=== PATIENT | male | born 1930 | race Caucasian/White ===

== ENCOUNTER 2017-01-12 17:46 | Inpatient (IN) | payer MEDICARE, BC ==
[~2017-01-12] VITALS: Ht 170.2 cm; Wt 74.0 kg
--- NOTE | ~2017-01-12 | OR ---
ADMIT: 01/12/2017 RM/LOC: 312 [facility] MR#: [id number] [address] [address] FREDO HERNANDEZ [address] [place] [address] Operative/Delivery Room Report SEX: M AGE: 86 : 1930 SURGERY DATE: 01/14/2017 SURGEON: Jesus Schultz MD PREOPERATIVE DIAGNOSES: Anemia with lower gastrointestinal bleed. POSTOPERATIVE DIAGNOSES: 1. Extensive sigmoid diverticula. 2. 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 PROCEDURE PERFORMED: Colonoscopy with hot cauterization of bleeding telangiectasia at the cecum and ileocecal valve. ANESTHESIA: Sedation. ESTIMATED BLOOD LOSS: None. DESCRIPTION OF PROCEDURE: After appropriate informed consent was obtained, the patient was brought to the endoscopy suite. IV sedation was provided. Rectal exam revealed some mild hemorrhoids. No rectal masses. The scope was introduced, passed the entire length of colon. He had a pretty poor prep, quite a bit of retained stool throughout. It took a while to irrigate and suction some of this out but I was unable to irrigate and suction all of it out. He had extensive sigmoid diverticula but there did not appear to be any active bleeding from any of those. I was able to advance through this area, all the way to the cecum. Interestingly in the cecum, around the ileocecal valve, was just a small trickle of blood coming from what appeared to be just a small telangiectasia, again just right on the ileocecal valve. I irrigated this away and then it continued to do ooze or bleed, so I made preparations to cauterize that area, so I used the hot biopsy forceps and cauterized and destroyed that small telangiectasia and controlled the bleeding that way. Ileocecal valve and appendiceal orifice otherwise appeared normal. The scope was then slowly and carefully withdrawn. No polyps or masses were identified on the way out. Again, he had extensive sigmoid diverticula. Scope was brought back down the rectum which revealed moderate-sized internal hemorrhoids. No rectal masses. The patient tolerated the procedure well and was taken to the recovery room in stable condition. Jesus Schultz MD/ william JOB #: [id number] CC: Ren Winslow, Attending Physician Ren Winslow, Family Physician Ren Winslow MD
--- NOTE | ~2017-01-12 | CO ---
ADMIT: 01/12/2017 RM/LOC: 312 [facility] MR#: [id number] [address] [address] FREDO HERNANDEZ[address] [place] [address] Consultation SEX: M AGE: 86 : 1930 DATE OF CONSULTATION: 01/13/2017 ATTENDING PHYSICIAN: Ren Winslow CONSULTING PHYSICIAN: Jesus Schultz MD ADDENDUM: HISTORY OF PRESENT ILLNESS: This is a pleasant 86-year-old male patient of Dr. Winslow, who had bright red blood per rectum and anemia as well as hypotension. I was asked to see him for possible endoscopy. It sounds like he had a colonoscopy done by Dr. Bravo a couple of years ago, which showed diverticula with no polyps or masses. He did have a small polyp also but no tumors or masses. At this time, the patient is nontender. On exam, his abdomen is soft, nontender, and nondistended. ASSESSMENT: Lower gastrointestinal bleed with anemia. PLAN: I have recommended proceeding with colonoscopy, which we will plan on doing tomorrow. We will have him drink the prep today. I have gone through the risks and benefits of this procedure with the patient. He understands and agrees to proceed. Jesus Schultz MD/ william JOB #: [id number] CC: Ren Winslow, Attending Physician Ren Winslow, Family Physician
[~2017-01-12 17:46] MED LIST: ASA CHILDREN'S81 MG PO; CALCIUM PO; CALCIUM600 MG PO; CALTRATE-600 D600 MG PO; CARAFATE1 GM PO; COREG12.5 MG PO; DUONEB DPS3 ML IH; HCTZ PO; HYDROCHLOROTHIA25 MG PO; LAXATIVE PO; LEVAQUIN500 MG PO; LEVAQUIN750 MG PO; LISINOPRIL5 MG PO; MICRO-K DPS10 MEQ PO; MUCINEX1200 MG PO; MUCOMYST 10% DPS4 ML IH; NITROSTAT0.4 MG PO; NORCO 10-325 T1 EACH PO; PREDNISONE PO; PROTONIX40 MG PO; PROVENTIL IH; PROVENTIL2.5 MG/0.5 IH; SIMVASTATIN10 MG PO; SPIRIVA18 MCG IH; SYMBICORT 160/4.5 IH; SYNTHROID DPS0.05 MG PO; SYNTHROID50 MCG PO; TYLENOL325 MG PO; VITAMIN C PO; WARFARIN PO; ZESTRIL5 MG PO; ZITHROMAX250 MG PO
--- NOTE | 2017-01-16 10:08 | HP ---
ADMIT: 01/12/2017 RM/LOC: 312 [facility] MR#: [id number] [address] [address] FREDO HERNANDEZ [address] [place] [address] History and Physical SEX: M AGE: 86 : 1930 DATE OF SERVICE: 01/12/2017 HISTORY OF PRESENT ILLNESS: This is an 86-year-old male with a history of COPD, CAD, chronic systolic heart failure, pacemaker dependent, hypothyroidism, admitted today after 2 episodes of hematochezia. The patient reports he was in his normal state of health until this afternoon when he had 2 bowel movements with large amounts of blood. Notes blood in the toiled bowl and mixed in stool, unable to quantify the amount of blood, but reports it was a lot. He felt weak after these 2 bowel movements and came to the emergency room. Last bowel movement was around 4 p.m. today, but the patient feels like he is going to have another bowel movement soon. The patient denies any lightheadedness, dizziness, palpitations, shortness of breath. Reports he wears about 6 L nasal cannula chronically due to his COPD. Denies any abdominal pain, nausea, vomiting. No melena and reports that the blood was bright red. Denies any history of GI bleeding in the past. He is unsure if he has been taking his aspirin because he takes so many meds. Reports appetite has been good. Denies any dysuria or changes in urinary symptoms. Reports his COPD is stable, and he denies any recent illnesses, sore throat. Denies chest pain or cough. He currently still feels weak, but denies other complaints. He was given 750 mL of normal saline in the ER and was started on NS of 150 mL an hour thereafter. He was started on Protonix IV and IV hydrocortisone while still in the ER. PAST MEDICAL HISTORY: 1. Advanced COPD. 2. Chronic systolic heart failure. 3. Hypertension. 4. CAD. 5. Pacemaker dependent. 6. Hypothyroidism. 7. Gastroesophageal reflux disease. 8. History of lung cancer. HOME MEDICATIONS: 1. Levothyroxine 75 mcg. 2. Lisinopril 5 mg. 3. Simvastatin 10 mg. 4. Carvedilol 25 mg b.i.d. 5. Multivitamin. 6. Calcium. 7. Fish oil. 8. Omeprazole 20 mg daily. 9. Bisacodyl. 10.Mucinex 1200 mg b.i.d. 11.Ferrous sulfate. 12.Vitamin C. 13.Aspirin 81 mg. 14.Lasix 80 mg daily. 15.Spiriva. ADMIT: 01/12/2017 RM/LOC: 312 [facility] MR#: [id number] [address] [address] [place] [address] History and Physical SEX: M AGE: 86 : 1930 16.Symbicort. 17.Albuterol nebulizers. 18.Albuterol inhaler. ALLERGIES: NO KNOWN DRUG ALLERGIES. FAMILY HISTORY: Noncontributory. SOCIAL HISTORY: Former smoker. Denies alcohol use. REVIEW OF SYSTEMS: A complete review of systems was obtained and is negative except for what is listed in the HPI above. PHYSICAL EXAMINATION: VITAL SIGNS: Upon admission to the emergency room include blood pressure 89/49 with a MAP of 59, pulse 70, respiratory rate of 19, oxygen saturation of 98% on 4 L. GENERAL: Alert and oriented. No acute distress. Slightly pale. HEENT: Mucous membranes dry. No scleral icterus. Extraocular movements intact. CARDIOVASCULAR: Regular rate and rhythm, no murmurs noted. RESPIRATORY: Slight expiratory wheezing noted bilaterally, otherwise clear to auscultation bilaterally. Nasal cannula in place. Normal respiratory effort. ABDOMEN: Soft, nontender, nondistended. Normoactive bowel sounds. RECTAL: Daniel blood noted around anal area. Normal rectal tone, no masses noted. Daniel blood noted on digital rectal exam. EXTREMITIES: Trace edema to lower extremities bilaterally. SKIN: Appears slightly pale, otherwise no rashes or lesions noted. NEUROLOGICAL: Moving all 4 extremities equally, no focal deficits. Cranial nerves grossly intact. PSYCH: Answers questions appropriately. Does not appear depressed or anxious. LABORATORY DATA: CBC shows hemoglobin of 10.2 (was 11.1 three weeks ago), platelets 198, WBC 6.8, creatinine 1.2 (baseline 0.9 to 1.0), otherwise BMP unremarkable. INR 1.09. IMAGING: Chest x-ray, stable fibrosis noted. No pulmonary edema. EKG shows paced ventricular rhythm, normal rate of 71. Last echocardiogram in November of 2015 revealed EF of 50% to 55%, moderate mitral regurgitation, severe tricuspid regurgitation, dilated left atrium, pulmonary artery systolic pressure of 56. ASSESSMENT AND PLAN: An 86-year-old male with history of chronic obstructive pulmonary disease, coronary artery disease, chronic systolic heart failure, hypothyroidism, history of iron deficiency anemia, history of lung cancer, admitted for a lower gastrointestinal bleed. ADMIT: 01/12/2017 RM/LOC: 312 [facility] MR#: [id number] [address] [place], [place] [id number] [address] [place] [address] History and Physical SEX: M AGE: 86 : 1930 1. Lower gastrointestinal bleed and hematochezia. a. Hemoglobin similar to prior, though onset of bleeding was recent, so we will recheck. b. We will continue IV fluids, IV PPI, and consult General Surgery for possible scope as Hemoccult is positive. 2. Hypotension. a. Unclear if due to blood loss as has only had 2 episodes of hematochezia and has had none since admission so far. Possibly due to relative adrenal insufficiency, so we will check renin and cortisol and currently giving stress dose steroids. We will continue to give IV fluids. 3. Chronic systolic heart failure. 4. Coronary artery disease. a. Paced rhythm. b. Mild ejection fraction 50% to 55% one year ago. c. We will continue to watch fluid status closely, and is currently IV fluids. 5. Advanced chronic obstructive pulmonary disease. a. We will continue inhalers and chronic oxygen. 6. History of iron deficiency anemia. a. We will hold iron for now, pending possible scope. 7. Hypothyroidism, continue Synthroid and monitor. 8. Hypertension, as is hypotensive we will hold anti-hypertensives and monitor. 9. History of gastroesophageal reflux disease, currently on IV PPI. 10.Generalized weakness, likely due to lower gastrointestinal bleed and hypotension, but we will consult PT/OT when the patient is stable to work with them. 11.Holding chemical deep vein thrombosis prophylaxis due to current gastrointestinal bleed. 12.DNR/DNI. 13.N.p.o. for now. Lydia Lenz MD / Ren Winslow MD / william JOB #: [id number] CC: Ren Winslow, Attending Physician Ren Winslow, Family Physician
[2017-01-20] MEDS ORDERED: CARVEDILOL3.125 MG PO (18:44)
[2017-01-20] MEDS ORDERED: THERA1 EACH PO (18:44)
[2017-01-20] MEDS ORDERED: SYNTHROID75 MCG PO (18:44)
[2017-01-20] MEDS ORDERED: SIMVASTATIN10 MG PO (18:44)
[2017-01-20] MEDS ORDERED: CALCIUM500 MG PO (18:45)
[2017-01-20] MEDS ORDERED: LAXATIVE5 M1 PO (18:46)
[2017-01-20] MEDS ORDERED: OMEGA-3 DPS1000 MG PO (18:46)
[2017-01-20] MEDS ORDERED: PRILOSEC DPS20 MG PO (18:46)
[2017-01-20] MEDS ORDERED: IRON325 M1 PO (18:47)
[2017-01-20] MEDS ORDERED: MUCINEX1200 MG PO (18:47)
[2017-01-20] MEDS ORDERED: LASIX DPS40 MG PO (18:48)
[2017-01-20] MEDS ORDERED: ASA CHILDREN'S81 MG PO (18:48)
[2017-01-20] MEDS ORDERED: ASCORBIC ACID500 MG PO (18:48)
[2017-01-20] MEDS ORDERED: SPIRIVA18 MCG IH (18:48)
[2017-01-20] MEDS ORDERED: SYMBICORT 16010.2 GM IH (18:49)
[2017-01-20] MEDS ORDERED: PROAIR RESPICL90 MCG IH (18:49)
[2017-01-20] MEDS ORDERED: PROVENTIL2.5 MG/3 M IH (18:49)
[2017-01-20] MEDS ORDERED: PREDNISONE1 MG PO (18:50)
[2017-01-20] MEDS ORDERED: COLACE-DPS100 MG PO (18:51)
[2017-01-20] MEDS ORDERED: LEVAQUIN DPS500 MG PO (18:51)
--- NOTE | 2017-01-22 23:29 | ER ---
ADMIT: 01/12/2017 RM/LOC: 312 [facility] MR#: [id number] [address] [address] FREDO HERNANDEZ [address] [place] [address] Emergency Room Report SEX: M AGE: 86 : 1930 DATE: 01/12/2017 ADDENDUM: The patient was checked out to me by Dr. Greer with results of labs pending. Apparently, the patient had originally presented because he had 2 episodes of blood in his stools this afternoon. Other than the blood in the stools and a feeling of being slightly weak, there was no other specific complaint. During his stay, the patient had no complaints of any pain whatsoever, did not have any difficulty breathing. No change in bladder function. Denied any recent illness, fevers or chills. He had gotten 500 L normal saline bolus prior to my taking over on the patient and was getting fluid at 150 mL/h. His blood pressure by the time I took over the patient was 90s over 50s while he was lying flat, in the 70s over 40s if he was sitting up. His labs showed that his hemoglobin was 10.2, which is actually stable for him. His INR is 1.09. His chemistries were unremarkable other than a BUN of 32. Chest x-ray showed nothing acute. Plan at this time is to have the patient come in for continued gentle fluid hydration and to further look into this possible lower GI bleed. I did order hydrocortisone 100 mg IV in the Emergency Department and Protonix 80 mg IV. I spoke to Dr. Winslow, his primary care physician, who will be admitting the patient. DIAGNOSES: 1. Lower gastrointestinal bleed. 2. Hypotension. Ayad Styles MD/ william JOB #: [id number] CC: Ren Winslow MD, Attending Physician Ren Winslow MD, Family Physician
--- NOTE | 2017-02-06 08:00 | DS ---
ADMIT: 01/12/2017 RM/LOC: 431 [facility] MR#: [id number] [address] [address] FREDO HERNANDEZ [address] [place] [address] Discharge Summary SEX: M AGE: 86 : 1930 CORRECTED: 02/01 1153 / 02/01 1228 / 02/01/2017 1251 ADMISSION DATE: 01/12/2017 DISCHARGE DATE: 01/19/2017 CONSULTATIONS: Jesus Schultz MD FINAL DIAGNOSES: 1. Acute blood loss anemia secondary to an in the cecum. 2. Chronic systolic heart failure. 3. COPD (chronic obstructive pulmonary disease) exacerbation. 4. Relative adrenal insufficiency. REASON FOR ADMISSION: Please see H and P. However, admitted with anemia and hypoxia. HOSPITAL COURSE: Admitted to the service of [facility] under the care of myself, Ren Winslow MD. 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 Laboratories remained stable throughout his hospitalization. His oxygenation improves nicely to his baseline, and he discharges to home on a steroid taper as well as instructions for followup. DISPOSITION: Home. DISCHARGE CONDITION: Stable. DISCHARGE MEDICATIONS: See the discharge medication reconciliation, it is reviewed and accurate. DISCHARGE INSTRUCTIONS: Discharged to home on a prednisone taper. Follow up with me in my office on January 27 at 9:15. Discussed the plan with the patient, expressed understanding, was in agreement, and had no further questions. Thirty minutes spent on discharge activities of this patient. Ren Winslow MD/ wendyf JOB #: [id number] CC: Ren Winslow MD, Attending Physician Ren Winslow MD, Family Physician CORRECTED: 02/01 1153 / 02/01 1228 / 02/01/2017 1257
--- NOTE | 2017-02-15 10:44 | CO ---
ADMIT: 01/12/2017 RM/LOC: 312 [facility] MR#: [id number] [address] [address] FREDO HERNANDEZ [address] [place] [address] Consultation SEX: M AGE: 86 : 1930 DATE OF CONSULTATION: 01/13/2017 ATTENDING PHYSICIAN: Ren Winslow CONSULTING PHYSICIAN: Jesus Schultz MD REASON FOR CONSULTATION: Hematochezia. HISTORY OF PRESENT ILLNESS: Fredo is a very pleasant 86-year-old male, who had 2 bloody bowel movements yesterday at home. He denies ever having any episodes like this before, dark stools, diarrhea, constipation, or nausea, vomiting, or abdominal pain. He takes 81 mg aspirin but denies taking any other blood thinning medications. His last colonoscopy was performed by Dr. Bravo in 2014 that did show some diverticulosis, ileocecal valve polyp, and an internal hemorrhoid. The patient further denies any lightheadedness or shortness of breath. PAST MEDICAL HISTORY: Significant for COPD, heart failure, hypertension, coronary artery disease, hypothyroidism, GERD, and history of lung cancer. PAST SURGICAL HISTORY: 1. Last EGD and colonoscopy was performed in 2014, please see HPI. 2. Pacemaker placement. ALLERGIES: NO KNOWN DRUG ALLERGIES. MEDICATIONS: Well documented in chart. FAMILY HISTORY: Noncontributory. SOCIAL HISTORY: The patient is a former smoker, but denies alcohol and illicit drug use. REVIEW OF SYSTEMS: CONSTITUTIONAL: The patient denies any fever, chills, or night sweats. The rest of comprehensive 10-point review of systems was performed and all other systems are negative. PHYSICAL EXAMINATION: GENERAL: The patient is in no acute distress. He is alert and oriented. HEENT: Head is normocephalic and atraumatic. EOMS are intact. Pallor conjunctiva but negative for icterus or erythema. Pinnae, free of deformities. Nose is midline. No tracheal deviation. NECK: Supple. SKIN: Positive for pallor. Negative for jaundice, clubbing, edema, pallor, or cyanosis. LUNGS: Normal respiratory effort. HEART: Distal pulses intact. Regular rate and rhythm. ABDOMEN: Soft, nondistended, and nontender. NEURO: Grossly intact. ADMIT: 01/12/2017 RM/LOC: 312 [facility] MR#: [id number] [address] [address] FREDO HERNANDEZ [address] [place] [address] Consultation SEX: M AGE: 86 : 1930 LABORATORY DATA: Hemoglobin 7.4, this is a trend down words. ASSESSMENT: Hematochezia. PLAN: The plan is to have the patient undergo colonoscopy tomorrow performed by Dr. Schultz. I will have him prep today. He is already on the schedule, and get him consented for the procedure. I discussed the risks, alternatives, benefits, and complications of colonoscopy with the patient to which he has agreement of this plan. I had all of his questions answered, and would like to proceed. Thank you for the consultation of this patient. LINDY Waldron / Jesus Schultz MD / william JOB #: [id number] CC: Ren Winslow, Attending Physician Ren Winslow, Family Physician
--- NOTE | 2017-02-15 10:44 | OR ---
ADMIT: 01/12/2017 RM/LOC: 312 [facility] MR#: [id number] [address] [address] FREDO HERNANDEZ [address] [place] [address] Operative/Delivery Room Report SEX: M AGE: 86 : 1930 SURGERY DATE: 01/13/2017 SURGEON: Jesus Schultz MD PREOPERATIVE DIAGNOSIS: Need for central venous access for IV fluids as well as pressors. POSTOPERATIVE DIAGNOSIS: Need for central venous access for IV fluids as well as pressors. PROCEDURE PERFORMED: Right internal jugular central venous line placement with ultrasound. ANESTHESIA: Local. ESTIMATED BLOOD LOSS: None. DESCRIPTION OF PROCEDURE: After consent was obtained, the patient was left in his ICU bed. His right neck was prepped and draped in a sterile fashion. A 1% lidocaine was injected in skin deep tissues directly over a large right internal jugular vein. A small incision was made over this vein. An 18-gauge Cook needle on a syringe was used to access his right internal jugular vein under real-time ultrasound guidance. The guidewire passed easily through the needle. Then via Seldinger technique, a 7-Belarusian, three-lumen catheter was placed to 17 cm to the skin edge. All three ports were aspirated and flushed easily. The line was sewn in place and sterile dressing applied. The patient tolerated the procedure well. Jesus Schultz MD/ william JOB #: [id number] CC: Ren Winslow, Attending Physician Ren Winslow, Family Physician
== END 2017-01-19 12:29 | disposition home health service (06) | DRG 377 ==
LOC: ER 17:46 → 3ICU 20:13 → 4PCU 01-17 06:57
PROVIDERS: ADMIT Internal Medicine
PROC: 03HY32Z Insertion of Monitoring Device into Upper Artery, Percutaneous Approach (ICD-10-PCS; 2017-01-12)
PROC: 30233N1 Transfusion of Nonautologous Red Blood Cells into Peripheral Vein, Percutaneous Approach (ICD-10-PCS; 2017-01-12)
PROC: 02HV33Z Insertion of Infusion Device into Superior Vena Cava, Percutaneous Approach (ICD-10-PCS; 2017-01-13)
PROC: 0W3P8ZZ Control Bleeding in Gastrointestinal Tract, Via Natural or Artificial Opening Endoscopic (ICD-10-PCS; principal; 2017-01-14)
DX: K55.21 Angiodysplasia of colon with hemorrhage (principal); J96.21 Acute and chronic respiratory failure with hypoxia; J18.9 Pneumonia, unspecified organism; I95.9 Hypotension, unspecified; E87.0 Hyperosmolality and hypernatremia; I11.0 Hypertensive heart disease with heart failure; I50.22 Chronic systolic (congestive) heart failure; D62 Acute posthemorrhagic anemia; Z99.81 Dependence on supplemental oxygen; E87.6 Hypokalemia; J44.9 Chronic obstructive pulmonary disease, unspecified; K57.30 Diverticulosis of large intestine without perforation or abscess without bleeding; E03.9 Hypothyroidism, unspecified; K21.9 Gastro-esophageal reflux disease without esophagitis; I25.10 Atherosclerotic heart disease of native coronary artery without angina pectoris; Z95.0 Presence of cardiac pacemaker; Z85.118 Personal history of other malignant neoplasm of bronchus and lung; Z79.82 Long term (current) use of aspirin; Z87.891 Personal history of nicotine dependence; Z66 Do not resuscitate; Q27.33 Arteriovenous malformation of digestive system vessel

== ENCOUNTER 2017-04-19 18:32 | Inpatient (IN) | payer MEDICARE, BC ==
[~2017-04-19] VITALS: Ht 170.2 cm; Wt 65.2 kg
--- NOTE | ~2017-04-19 | CO ---
ADMIT: 04/19/2017 RM/LOC: 530 [facility] MR#: [id number] [address] [address] FREDO HERNANDEZ[address] [place] [address] Consultation SEX: M AGE: 86 : 1930 DATE OF CONSULTATION: 04/20/2017 ATTENDING PHYSICIAN: Ren Winslow CONSULTING PHYSICIAN: Jesus Schultz MD ADDENDUM: This patient has recurrent lower GI bleed with bright red blood per rectum. I scoped him a few months ago and found telangiectasia in the cecum, I believe. Nothing else concerning. With this recurrent bleeding, he now presents to discuss repeat colonoscopy. PHYSICAL EXAMINATION: ABDOMEN: Soft. It is nontender. ASSESSMENT: Recurrent lower gastrointestinal bleed, question telangiectasia versus a diverticular bleed. PLAN: I have recommended proceeding with colonoscopy. I have gone through risks and benefits of this procedure in depth with the patient. He understands all this and agrees to proceed. Jesus Schultz MD/ modl JOB #: [id number] CC: Ren Winslow, Attending Physician Ren Winslow, Family Physician
[~2017-04-19 18:32] MED LIST changes: +ASCORBIC ACID500 MG PO; +CALCIUM500 MG PO; +CARVEDILOL3.125 MG PO; +COLACE-DPS100 MG PO; +IRON325 M1 PO; +LASIX DPS40 MG PO; +LAXATIVE5 M1 PO; +LEVAQUIN DPS500 MG PO; +OMEGA-3 DPS1000 MG PO; +PREDNISONE1 MG PO; +PRILOSEC DPS20 MG PO; +PROAIR RESPICL90 MCG IH; +PROVENTIL2.5 MG/3 M IH; +SYMBICORT 16010.2 GM IH; +SYNTHROID75 MCG PO; +THERA1 EACH PO
--- NOTE | 2017-04-21 08:36 | HP ---
ADMIT: 04/19/2017 RM/LOC: 530 [facility] MR#: [id number] [address] [address] FREDO HERNANDEZ [address] [place] [address] History and Physical SEX: M AGE: 86 : 1930 DATE OF SERVICE: CHIEF COMPLAINT: Bright red blood per rectum. HISTORY OF PRESENT ILLNESS: The patient is a very pleasant 86-year-old gentleman, who reports he had a small little bit of blood in his stool yesterday and a large amount today. It has had happened recently, this spring, necessitating a week long stay in the hospital with multiple endoscopic evaluations as well as ICU stay and transfusions, etc. The patient is very nervous about this and presented to the emergency room. Prior to this, he has really been in his usual state of health. No recent fevers, chills, nausea, or vomiting. No shortness of breath. No dyspepsia. No melena reported. He has been eating and drinking well. He does not know much about his medications and his sons are very involved in his care and they do this for him. He just recently had hemoglobin of 10.8 back in the office records and not too long ago, on the 10 of March. PAST MEDICAL HISTORY: 1. History of chronic systolic heart failure. 2. Advanced COPD. 3. Hypertension. 4. Coronary artery disease. 5. Pacer-dependent atrial fibrillation. 6. Hypothyroidism. 7. GERD. 8. History of lung cancer. 9. 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 MEDICATIONS: He is on: 1. Aspirin 81 mg a day. 2. Albuterol. 3. DuoNeb. 4. Vitamin C. 5. Bisacodyl. 6. Symbicort. 7. Carvedilol. 8. Docusate. 9. Ferrous sulfate. 10.Lasix. 11.Synthroid. 12.Multivitamin. 13.Omeprazole. 14.Simvastatin. 15.Spiriva. Please see list for full details. FAMILY HISTORY: Significant for cancer in his mother. Father and sister had heart disease. Brother had cancer as well. ADMIT: 04/19/2017 RM/LOC: 530 [facility] MR#: [id number] [address] [address] FREDO HERNANDEZ [facility] [place] [address] History and Physical SEX: M AGE: 86 : 1930 SOCIAL HISTORY: Former smoker. Lives at home with his . Sons are involved in his care. REVIEW OF SYSTEMS: As per HPI. Otherwise, completely reviewed and negative. PHYSICAL EXAMINATION: VITAL SIGNS: Temperature 97.3, pulse 71, respiratory rate 16, blood pressure 99/57, O2 saturation 92% on room air. GENERAL: He is alert and oriented x3. No acute distress. A little hard of hearing. Pleasant. HEENT: Normocephalic, atraumatic. Pupils are equal, round, and reactive to light and accommodation. Extraocular muscles intact. Moist mucous membranes. NECK: No lymphadenopathy. Soft, supple. Trachea midline. LUNGS: He has very prolonged expiratory phase, but really not many wheezes. Very faint, occasional one at end-expiratory. Symmetric thoracic excursion and a little barrel chested. HEART: Regular rate and rhythm. No murmurs, rubs, or gallops. ABDOMEN: Soft, nontender, nondistended. Bowel sounds present. No guarding. No rigidity. No masses palpable. EXTREMITIES: No cyanosis, clubbing, or edema. MUSCULOSKELETAL: Has 5/5 strength in all four extremities. NEUROLOGICAL: No focal deficits noted. Cranial nerves II through XII grossly intact. SKIN: No rashes noted. LABORATORY AND X-RAY DATA: Hemoglobin is 10.3, platelets 169, white count 5.6. ASSESSMENT: 1. Gastrointestinal bleed. 2. History of colonic arteriovenous malformation/telangiectasia. ADMIT: 04/19/2017 RM/LOC: 530 [facility] MR#: [id number] [address] [address] FREDO HERNANDEZ [address] [place] [address] History and Physical SEX: M AGE: 86 : 1930 3. Advanced chronic obstructive pulmonary disease. 4. Atrial fibrillation, status post pacemaker. 5. Hypertension. 6. Coronary artery disease. PLAN: At this point in time, I will stop his aspirin. We will just watch his hemoglobin and trend it overnight until it stabilizes. Given his severe history of requiring transfusions, ICU stay in the past, I think we should watch him in the hospital until he improves and he is very stable. Likely needs to be off aspirin indefinitely. We will hold off on surgical evaluation unless he gets more hypotensive or unstable or needs transfusion. The patient is agreeable to plan. Duane Barnhart MD/ william JOB #: [id number] CC: Ren Winslow, Attending Physician Ren Winslow, Family Physician
--- NOTE | 2017-04-29 17:59 | ER ---
ADMIT: 04/19/2017 RM/LOC: 530 [facility] MR#: [id number] [address] [address] FREDO HERNANDEZ [address] [place] [address] Emergency Room Report SEX: M AGE: 86 : 1930 DATE: 04/19/2017 ADDENDUM: CHIEF COMPLAINT: Bloody stools. HISTORY OF PRESENT ILLNESS: This is an 86-year-old male who had a history of a recent GI bleed in January of 2017. Today, he said he came as soon as he saw blood in his stool again, he has only had one episode. His hemoglobin is 10.3. At this time, his vitals are stable but I did speak with Dr. Barnhart regarding this patient. Due to his recent bleed within a few months, we are keeping him on observation. CLINICAL IMPRESSION: Gastrointestinal bleed with hematochezia. LINDY Santana / Ayad Styles MD / william JOB #: [id number] CC: Ren Winslow MD, Attending Physician Ren Winslow MD, Family Physician
--- NOTE | 2017-04-30 21:18 | DS ---
ADMIT: 04/19/2017 RM/LOC: 530 [facility] MR#: [id number] [address] [address] FREDO HERNANDEZ [address] [place] [address] Discharge Summary SEX: M AGE: 86 : 1930 ADMISSION DATE: 04/19/2017 DISCHARGE DATE: 04/23/2017 DISCHARGE DIAGNOSES: 1. Lower GI (gastrointestinal) bleed, likely diverticular in nature. 2. Severe colonic diverticulosis. 3. Acute blood loss anemia. 4. COPD (chronic obstructive pulmonary disease). 5. Chronic respiratory failure. 6. Hypokalemia, resolved. 7. Atrial fibrillation, status post pacemaker. 8. Hypertension. 9. Gastroesophageal reflux disease. 10.History of chronic systolic heart failure. 11.Hypothyroidism. CONSULTATIONS: Jesus Schultz MD with general surgery. PROCEDURES: Colonoscopy. REASON FOR ADMISSION: The patient is a very pleasant 86-year-old gentleman who presented to [facility] on the day of admission with complaints of bright red blood in his stool. It happened over about a 48 hours period of time. This also happened in the spring and required multiple endoscopic evaluations at this time. At the time of admission, his hemoglobin was 10.3, and he was admitted for further evaluation and treatment. For complete details, please see H and P dictated on the day of admission. HOSPITAL COURSE: At the time of admission, his hemoglobin was 10.3, he was admitted and hemoglobin was monitored. Surgery was consulted and he underwent a colonoscopy that showed extensive diverticulosis. No evidence of telangiectasia or AVMs were noted. There was no active bleed noted. During his hospital stay his hemoglobins were monitored. He did require 3 units of packed red cells total. Any bleeding or melanotic stools stopped and his hemoglobin stabilized at about 8.2. He was on oral iron therapy. He ADMIT: 04/19/2017 RM/LOC: 530 [facility] MR#: [id number] [id number] [facility] [address] [place] [id number] FREDO HERNANDEZ [address] [place] [address] Discharge Summary SEX: M AGE: 86 : 1930 ambulated and ate without difficulty. He did have a little dizziness and we held his Lasix and Coreg for a short period of time. He was a little hypokalemic and we replaced that as well. As mentioned, did well with therapy. As mentioned, was not orthostatic and with his hemoglobin being stable he had a normal bowel movement on the day of discharge without any symptoms. He had been eating well and was thought to be ready for discharge on 04/23. His discharge medications are found on his discharge medication list. He will never be on any aspirin, fish oil or other any antiplatelet agents again. We will be restarting his Lasix and Coreg as an outpatient. We will make sure we have close followup with Dr. Winslow. His diet will be cardiac as tolerated. As mentioned, he will see Dr. Winslow in the next week or thereabouts for followup. Mario Haynes MD/ adyg JOB #: [id number] CC: Ren Winslow MD, Attending Physician Ren Winslow MD, Family Physician
--- NOTE | 2017-05-02 07:06 | OR ---
ADMIT: 04/19/2017 RM/LOC: 530 [facility] MR#: [id number] [address] [address] FREDO HERNANDEZ [address] [place] [address] Operative/Delivery Room Report SEX: M AGE: 86 : 1930 SURGERY DATE: 04/21/2017 SURGEON: Jesus Schultz MD PREOPERATIVE DIAGNOSIS: Lower gastrointestinal bleed. POSTOPERATIVE DIAGNOSIS: Evidence of extensive diverticula and probable diverticular bleed. No evidence of telangiectasia. No active bleeding. PROCEDURE PERFORMED: Colonoscopy. ANESTHESIA: Sedation. ESTIMATED BLOOD LOSS: None. DESCRIPTION OF PROCEDURE: After appropriate informed consent was obtained, the patient was brought to the operating room. IV sedation was provided. A rectal exam was performed. This revealed a fair bit of old red blood in the rectum. The scope was introduced, passed the entire length of colon. He had quite a bit of blood and some stool mixed in within the rectum and sigmoid colon region. That seems to be where most of the blood was concentrated. He had extensive wide-mouth sigmoid diverticula. It took quite a bit of time irrigating and suctioning all this blood out or as much as I possibly could. I did not identify anything actively bleeding. There was no fresh bright red blood. It was all dark or maroon colored blood. The scope was advanced past this area all the way to the cecum. The remainder of the colon looked normal. The ileocecal valve and appendiceal orifice appeared normal. I did not identify any telangiectasia this time around. The scope was slowly and carefully withdrawn and again the colonic mucosa was inspected. We ran into the diverticula again and I washed out several more of those diverticula, still did not identify any active sites of bleeding. The scope was pulled back down the rectum, retroflexed, revealing no internal hemorrhoids or rectal mass. The patient tolerated the procedure well and was taken to the recovery room in stable condition. Jesus Schultz MD/ william JOB #: [id number] CC: Ren Winslow, Attending Physician Ren Winslow, Family Physician Mario Haynes MD
--- NOTE | 2017-05-02 07:06 | CO ---
ADMIT: 04/19/2017 RM/LOC: 530 [facility] MR#: [id number] [address] [address] FREDO HERNANDEZ [address] [place] [address] Consultation SEX: M AGE: 86 : 1930 DATE OF CONSULTATION: 04/20/2017 ATTENDING PHYSICIAN: Ren Winslow CONSULTING PHYSICIAN: Jesus Schultz MD REASON FOR CONSULTATION: Lower GI bleed. HISTORY OF PRESENT ILLNESS: Fredo is a very pleasant 86-year-old male, who has been admitted to the hospital for GI bleed and anemia. Currently, the patient denies any symptoms. He denies any pain, nausea, vomiting, or changes to his bowels. However, nursing reports that his last bowel movement appeared to be quite red with blood. The patient does have a past medical history of cecal telangiectasia that was noted under a colonoscopy performed by Dr. Schultz back in January of this year. At that time, he was in the ICU for a rather urgent workup of his anemia. The patient takes 81 mg aspirin, but denies any other blood thinning medications. PAST MEDICAL HISTORY: Significant for atrial fibrillation, hypertension, GERD, coronary artery disease, COPD, hypothyroidism, and lung cancer. PAST SURGICAL HISTORY: Please see HPI. ALLERGIES: NO KNOWN DRUG ALLERGIES. MEDICATIONS: Well documented in chart. FAMILY HISTORY: Noncontributory. SOCIAL HISTORY: The patient denies any tobacco, alcohol, or illicit drug use. REVIEW OF SYSTEMS: CONSTITUTIONAL: The patient denies any fever, chills, or night sweats. MUSCULOSKELETAL: Patient uses a walker to ambulate, but denies any joint pain or decreased range of motion. The rest of comprehensive 10-point review of systems was performed and all other systems are negative. PHYSICAL EXAMINATION: GENERAL: The patient is in no acute distress. He is alert and oriented. HEENT: Head is normocephalic and atraumatic. EOMS are intact. Conjunctivae free of icterus, erythema, or pallor. Pinnae free of deformities. Nose, midline. No tracheal deviation. NECK: Supple. SKIN: Negative for jaundice, clubbing, edema, pallor, or cyanosis. LUNGS: Normal respiratory effort. HEART: Distal pulses intact. Regular rate and rhythm. ABDOMEN: Soft, nondistended, and nontender. NEURO: Grossly intact. ADMIT: 04/19/2017 RM/LOC: 530 [facility] MR#: [id number] [address] [address] [address] [place] [address] Consultation SEX: M AGE: 86 : 1930 LABORATORY DATA: Current hemoglobin decreased to 8.0. ASSESSMENT: Anemia, lower gastrointestinal bleed. PLAN: The plan is to have the patient undergo colonoscopy tomorrow performed by Dr. Schultz. I discussed the risks, alternatives, benefits, and complications of endoscopy with the patient to which he has agreement of this plan, had all his questions answered and would like to proceed. We will prep him today and plan for the procedure room tomorrow. Thank you for the consultation on this patient. LINDY Waldron / Jesus Schultz MD / william JOB #: [id number] CC: Ren Winslow, Attending Physician Ren iWnslow, Family Physician
== END 2017-04-23 12:20 | disposition home or self-care (01) | DRG 378 ==
LOC: ER 18:32 → 5MS 20:27
PROVIDERS: ADMIT Internal Medicine
PROC: 30233N1 Transfusion of Nonautologous Red Blood Cells into Peripheral Vein, Percutaneous Approach (ICD-10-PCS; principal; 2017-04-20)
PROC: 0DJD8ZZ Inspection of Lower Intestinal Tract, Via Natural or Artificial Opening Endoscopic (ICD-10-PCS; 2017-04-21)
DX: K57.31 Diverticulosis of large intestine without perforation or abscess with bleeding (principal); I50.22 Chronic systolic (congestive) heart failure; J96.10 Chronic respiratory failure, unspecified whether with hypoxia or hypercapnia; I11.0 Hypertensive heart disease with heart failure; D62 Acute posthemorrhagic anemia; I48.91 Unspecified atrial fibrillation; E87.6 Hypokalemia; J44.9 Chronic obstructive pulmonary disease, unspecified; I25.10 Atherosclerotic heart disease of native coronary artery without angina pectoris; D64.9 Anemia, unspecified; E03.9 Hypothyroidism, unspecified; K21.9 Gastro-esophageal reflux disease without esophagitis; Z85.118 Personal history of other malignant neoplasm of bronchus and lung; Z95.0 Presence of cardiac pacemaker; Z79.82 Long term (current) use of aspirin; Z66 Do not resuscitate